=== PATIENT | female | born 1945 | race Caucasian/White ===

== ENCOUNTER 2023-05-04 09:59 | Observation (INO) | payer MEDICARE, SELFPAY ==
[2023-05-04] VITALS (12 sets, daily range): BP systolic 90–159; BP diastolic 56–79; PULSE 80–132; RESP 16–25; TEMP 36.4–37.2; O2SAT 92–98; BMI 20.7
--- NOTE | 2023-05-04 10:05 | XRR_ITS ---
PROCEDURE INFORMATION: Exam: XR Chest Exam date and time: 05/04/2023 10:24 AM Age: 77 years old Clinical indication: Other: A fib; Additional info: Dyspnea/cough TECHNIQUE: Imaging protocol: Radiologic exam of the chest. Views: 1 view. COMPARISON: No relevant prior studies available. FINDINGS: Lungs: Unremarkable. No consolidation. Pleural spaces: Unremarkable. No pleural effusion. No pneumothorax. Heart/Mediastinum: Unremarkable. No cardiomegaly. Bones/joints: [id number] scoliosis. No acute findings. XR/XR chest 1V portable [id number] IMPRESSION: No acute findings.
--- NOTE | 2023-05-04 10:05 | ECG_ITS ---
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 Measurements Intervals [place] Rate: 172 P: 0 [place]: 0 QRS: 14 QRSD: 74 T: 57 QT: 249 QTc: 422 Interpretive Statements ATRIAL FIBRILLATION WITH RAPID VENTRICULAR RESPONSE LOW QRS VOLTAGE IN PRECORDIAL LEADS [QRS DEFLECTION < 1.0 mV IN CHEST LEADS] SEPTAL MYOCARDIAL INFARCTION , PROBABLY OLD [40+ ms Q WAVE IN V1/V2] CRITICAL TEST RESULT No previous ECG available for comparison Electronically Signed On 05-04-2023 12:21:38 CDT by Darci Sexton M.D. [id number]
--- NOTE | 2023-05-04 10:16 | ECG_ITS ---
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 Measurements Intervals [place] Rate: 80 P: 0 ME: 0 QRS: -8 QRSD: 82 T: 20 QT: 335 QTc: 389 Interpretive Statements ATRIAL FIBRILLATION LOW QRS VOLTAGE IN PRECORDIAL LEADS [QRS DEFLECTION < 1.0 mV IN CHEST LEADS] POSSIBLE ANTERIOR MYOCARDIAL INFARCTION , PROBABLY OLD [30 ms Q WAVE IN V3/V4, OR R < 0.2 mV IN V4] Compared to ECG 05/04/2023 10:19:05 No significant changes Electronically Signed On 05-04-2023 12:21:34 CDT by Darci Sexton M.D. [email or web address] [email or web address] [email or web address]/store/[id number]
--- NOTE | 2023-05-04 10:25 | ED_ITS ---
HPI - Dizziness General: Chief Complaint: Dizziness Stated Complaint: chest congestion/dizziness Time Seen by Provider: 05/04/23 10:05 Source: patient Mode of arrival: ambulatory Limitations: no limitations History of Present Illness: HPI Narrative: 77-year-old female states over last 2 weeks she has had cough congestion along with some weakness. She states she has felt like her hearts been racing as well she is in A-fib with RVR here heart rates in the 160s she has no history of A- fib. States she had some low-grade fevers along with some increasing cough she denies any severe shortness of breath she is not hypoxic here. She denies any pain anywhere. Associated symptoms: Denies chest pain, chills, headache(s), nausea or vomiting Review of Systems Const: Denies: fever(s) or chills ENMT: Denies: throat pain or dental pain Card: Reports: irregular heart rhythm; Denies: chest pain Resp: Reports: dyspnea and non-productive cough GI: Denies: abdominal pain, nausea, vomiting or diarrhea : Denies: dysuria Musc: Denies: neck pain or back pain Skin/Breast: Denies: rash Neuro: Denies: headache(s) PFSH ED PFSH: Medical History (Updated 05/04/23 @ 12:48 by Paige Munguia MD) Seasonal allergies Surgical History (Updated 05/04/23 @ 12:21 by Leonides Cruz MD) History of tubal ligation Family History (Updated 05/04/23 @ 12:22 by Leonides Cruz MD) Other CAD (coronary artery disease) Social History (Updated 05/04/23 @ 12:22 by Leonides Cruz MD) Smoking and tobacco status: never smoked Alcohol intake: former Physical Exam Const: COMMON NORMALS: patient oriented x3 HENMT: COMMON NORMALS: normocephalic and atraumatic HEAD & SCALP: normocephalic and atraumatic Eye: COMMON NORMALS: conjunctivae normal CONJUNCTIVA: Yes conjunctivae normal Neck/C-Spine: COMMON NORMALS: full ROM and supple Chest: COMMONS NORMALS: normal inspection of the chest and normal palpation of entire chest wall Resp: COMMON NORMALS: normal respiratory effort, No retractions, No use of accessory muscles and clear to auscultation bilaterally AUSCULTATION: clear to auscultation bilaterally Cardio: COMMON NORMALS: No murmurs present (Cardio) RATE: tachycardic RHYTHM: abnormal rhythm irregularly irregular GI: COMMON NORMALS: Normal to inspection, nondistended, normoactive bowel sounds present, Soft to palpation, non-tender and no masses PALPATION: Yes Soft to palpation Extremity: COMMON NORMALS: normal to inspection and full ROM Neuro: COMMON NORMALS: patient oriented x3, moves all extremities and no focal motor deficits Psych: COMMON NORMALS: mental status grossly normal, Normal thought process present and cooperative THOUGHT PROCESS: Normal thought process present Skin: COMMON NORMALS: no rashes or lesions noted and no wounds GENERAL SKIN EXAM: no rashes or lesions noted Course Vital Signs: Vital signs: Vital Signs Temperature 97.9 F 05/04/23 12:40 Pulse Rate 80 05/04/23 12:40 Respiratory Rate 25 H 05/04/23 10:31 Blood Pressure 115/73 05/04/23 12:40 Pulse Oximetry 95 05/04/23 12:40 Oxygen Delivery Me thod Room Air 05/04/23 11:01 MDM - Dizziness Medical Decision Making Patient presents with new onset A-fib heart rate has improved here but did start her on a Cardizem drip spoke to the hospitalist will admit for observation as this is new onset she is continue have some tachycardia. Medical Records I reviewed the patient's medical records. Lab Data I reviewed the patient's lab results. 05/04/23 10:30 05/04/23 10:30 Radiology Impressions Chest X-Ray 05/04/23 10:05 IMPRESSION: No acute findings. Laboratory Results WBC 9.51 10^3/uL (3.29-11.43) 05/04/23 10:30 RBC 4.80 10^6/uL (3.85-5.65) 05/04/23 10:30 Hgb 15.30 g/dL (11.27-16.99) 05/04/23 10:30 Hct 44.2 % (36-47) 05/04/23 10:30 MCV 92.1 fl (85-98) 05/04/23 10:30 MCH 31.9 pg (27-33) 05/04/23 10:30 MCHC 34.6 g/dL (30-55) 05/04/23 10:30 RDW 13.0 % (12.1-15.1) 05/04/23 10:30 Plt Count 135 10^3/cmm (157-399) L 05/04/23 10:30 MPV 11.5 fL (7.4-10.4) H 05/04/23 10:30 Neut % (Auto) 28.5 % 05/04/23 10:30 Lymph % (Auto) 60.7 % 05/04/23 10:30 [place] % (Auto) 9.3 % 05/04/23 10:30 Eos % (Auto) 0.4 % 05/04/23 10:30 Baso % (Auto) 0.9 % 05/04/23 10:30 Neut # (Auto) 2.71 10^3/uL (1.8-7.7) 05/04/23 10:30 Lymph # (Auto) 5.8 10^3/uL (0.8-4.8) H 05/04/23 10:30 [place] # (Auto) 0.9 10^3/uL (0.2-0.9) 05/04/23 10:30 Eos # (Auto) 0.0 10^3/uL (0.0-0.8) 05/04/23 10:30 Baso # (Auto) 0.1 10^3/uL (0.0-0.1) 05/04/23 10:30 Nucleated RBC % (auto) 0 % 05/04/23 10:30 Nucleated RBCs # 0.0 /100WBC 05/04/23 10:30 Sodium 135 mmol/L (136-145) L 05/04/23 10:30 Potassium 3.7 mmol/L (3.5-5.1) 05/04/23 10:30 Chloride 99 mmol/L (98-107) 05/04/23 10:30 Carbon Dioxide 26 mmol/L (22-29) 05/04/23 10:30 Anion Gap 13.7 (5-19) 05/04/23 10:30 BUN 14 mg/dL (8-23) 05/04/23 10:30 Creatinine 0.7 mg/dL (0.5-0.9) 05/04/23 10:30 GFR Calculation Not Reportable 05/04/23 10:30 Glucose 147 mg/dL (65-115) H 05/04/23 10:30 Calculated Osmolality 283 mOsm/kg (285-295) L 05/04/23 10:30 Calcium 10.0 mg/dL (8.5-10.5) 05/04/23 10:30 Total Bilirubin 0.6 mg/dL (0.15-1.2) 05/04/23 10:30 AST 57 U/L (0-32) H 05/04/23 10:30 ALT 49 U/L (0-33) H 05/04/23 10:30 Alkaline Phosphatase 90 U/L (35-105) 05/04/23 10:30 Total Protein 6.7 g/dL (6.6-8.7) 05/04/23 10:30 Albumin 4.1 g/dL (3.5-5.2) 05/04/23 10:30 Globulin 2.6 g/dL (1.3-4.6) 05/04/23 10:30 SARS-CoV-2 Ag (Rapid) negative (Negative) 05/04/23 11:10 All radiology interpretation(s) finalized by discharge EKG Data EKG 1: I personally reviewed and interpreted this EKG as follows: EKG interpretation date: 05/04/23 EKG interpretation time: 10:19 Interpretation: afib with rvr hr [address] or t wave abnormalities qrs 74 qtc 342 Discharge Plan Discharge Patient Disposition: Admitted As Inpatient Admit Provider: Leonides Cruz Clinical Impression: Atrial fibrillation with rapid ventricular response Condition: Stable Coding Level of Care Code ED Software Quality Automation Engineer for Chg Jackie
[2023-05-04] MEDS: sodium chloride 0.9% 1,000 ML 999 ML IV (10:35)
[2023-05-04] MEDS: dilTIAZem 5 mg/mL SDV 5 mL 15 MG IVP (10:36)
[2023-05-04 10:42] LABS: Basophils # 0.1 10^3/uL (0.0-0.1); Basophils % 0.9 %; Eosinophils % 0.4 %; Hematocrit 44.2 % (36-47); Lymphocytes # 5.8 10^3/uL (0.8-4.8); Lymphocytes % 60.7 %; Mean Corpuscular HGB Conc 34.6 g/dL (30-55); Mean Corpuscular Hemoglobin 31.9 pg (27-33); Mean Corpuscular Volume 92.1 fl (85-98); Mean Platelet Volume 11.5 fL (7.4-10.4); Monocytes # 0.9 10^3/uL (0.2-0.9); Monocytes % 9.3 %; Neutrophils # 2.71 10^3/uL (1.8-7.7); Neutrophils % 28.5 %; Nucleated Red Blood Cells % 0 %; Platelet Count 135 10^3/cmm (157-399); White Blood Count 9.51 10^3/uL (3.29-11.43)
--- NOTE | 2023-05-04 10:57 | PC.PHAR ---
pt states she takes no rx medications and uses flonase prn
[2023-05-04 11:01] LABS: Alanine Aminotransferase 49 U/L (0-33); Albumin Level 4.1 g/dL (3.5-5.2); Alkaline Phosphatase 90 U/L (35-105); Anion Gap 13.7 (5-19); Aspartate Amino Transferase 57 U/L (0-32); Blood Urea Nitrogen 14 mg/dL (8-23); Carbon Dioxide 26 mmol/L (22-29); Chloride 99 mmol/L (98-107); Globulin 2.6 g/dL (1.3-4.6); Glucose 147 mg/dL (65-115); Osmolality Calculated 283 mOsm/kg (285-295); Potassium 3.7 mmol/L (3.5-5.1); Sodium 135 mmol/L (136-145); Total Bilirubin 0.6 mg/dL (0.15-1.2); Total Protein 6.7 g/dL (6.6-8.7)
[2023-05-04 11:03] LABS: Slide Review Slide Review Perform
[2023-05-04 11:34] LABS: SARS Covid-2 Antigen negative (Negative)
[2023-05-04] MEDS: dilTIAZem 100 MG in sodium chloride 0.9% (add-van) 100 ML IV (12:09)
--- NOTE | 2023-05-04 12:19 | P.HP_ITS ---
Providers/Chief Complaint Admitting Physician: Leonides Cruz MD Primary Care Provider: Jonatan Mar DO Chief Complaint: chest congestion/dizziness History of Present Illness Chandni Adams is a 77 year old female emergency department with complaints of palpitations, shortness of breath. She reports this started last night, after yelling at her . She states that 2 weeks ago she had some cough and congestion, perhaps some low-grade fever but this went away. She does not think she was in atrial fibrillation at that time. At some time she felt a little bit of chest discomfort, but it was sharp and short-lived. This was perhaps a day ago. No nausea, vomiting. No chest discomfort currently. She feels like she is back to normal. In the emergency department she got a bolus of Cardizem, and her heart rate was 90 when I saw her, but still atrial fi brillation. She denies ever being in atrial fibrillation before, and denies any history of heart disease. Review of Systems General: Reports: 10 or more systems reviewed and unremarkable except in HPI and below Card: Reports: chest pain, palpitations and irregular heart rhythm; Denies: swelling of feet/ankles Resp: Reports: dyspnea; Denies: productive cough or non-productive cough GI: Denies: abdominal pain, nausea, vomiting, hematemesis, hematochezia or melena Medications/Allergies Home Medications Medication Instructions Recorded Confirmed Last Taken Type fluticasone propionate 50 2 spray intranasal DAILY PRN 05/04/23 05/04/23 Unknown History mcg/actuation nasal Allergy Symptoms spray,suspension Allergies Allergy/AdvReac Type Severity Reaction Status Date / Time No Known Allergies Allergy Verified 05/04/23 10:56 PFSH Acute PFSH: Medical History (Updated 05/04/23 @ 12:25 by Leonides Cruz MD) Seasonal allergies Surgical History (Updated 05/04/23 @ 12:21 by Leonides Cruz MD) History of tubal ligation Family History (Updated 05/04/23 @ 12:22 by Leonides Cruz MD) Other CAD (coronary artery disease) Social History (Updated 05/04/23 @ 12:22 by Leonides Cruz MD) Smoking and tobacco status: never smoked Alcohol intake: former Vitals/I&O/Wt Last Vital Signs Temp 97.6 F 05/04/23 10:08 Pulse 125 H 05/04/23 12:00 Resp 25 H 05/04/23 10:31 BP 159/79 05/04/23 12:00 Pulse Ox 96 05/04/23 12:00 O2 Del Method Room Air 05/04/23 11:01 Weight last 48 hrs Weight 61.689 kg Physical Exam Narrative: General exam is a white female, in no distress HENT: Atraumatic normocephalic. Pupils equally round. Oropharynx clear. Neck is supple no lymphadenopathy thyromegaly Cardiovascular irregular, irregular, with a rate around 100. No murmur Lungs clear no wheezing or crackles Abdomen is soft, positive bowel sounds. No obvious organomegaly exam was deferred Extremities no sinus clubbing or edema, cap refill brisk Skin no rash Neuro no focal deficits Data 05/04/23 10:30 05/04/23 10:30 Other Labs: LFTs are normal with exception of AST and ALT which are slightly elevated at 57 and 49 Glucose 147 Albumin and calcium are normal Rapid COVID-negative Chest x-ray by my read demonstrates scoliosis, no other findings EKG demonstrates atrial fibrillation with rapid ventricular rate, rate of 170, normal axis, nonspecific ST-T wave changes. Q waves are noted septally. I have over read this. A&P Assessment and plan (1) Atrial fibrillation with rapid ventricular response: Patient presents to the hospital with atrial fibrillation with rapid ventricular rate. She believes it is only been going on since last night. Cardizem bolus was given in the emergency department. Her rate is drifting up. I instructed them to go ahead and initiate a Cardizem drip per the orders that were already entered Start Cardizem orally 30 mg every 6 hours and taper off drip as tolerated. Start full dose anticoagulation currently, and will review on discharge whether this should continue as an outpatient Check echocardiogram Check TSH and magnesium level CBC, CMP tomorrow (2) Hyperglycemia: Check hemoglobin A1c (3) Chest pain: Patient reports chest discomfort days ago, sharp, and likely not related to current episode but will check a troponin baseline and determine whether other additional measurements need to be performed Echocardiogram will be useful to make sure there are no wall motion abnormalities Plan Thrombocytopenia. Repeat platelet count tomorrow. This is mild Mild transaminitis. May be secondary to congestion of the liver from atrial fibrillation with rapid ventricular rate. Repeat tomorrow Full code Lovenox will suffice for DVT prophylaxis as well Attestations Medical Necessity Statement*: Will need less than 2 midnights stay for evaluation and treatment of atrial fibrillation with rapid ventricular rate. Diagnoses Atrial fibrillation with rapid ventricular response I48.91 Hyperglycemia R73.9 Chest pain R07.9 Time Spent (min) 47
--- NOTE | 2023-05-04 12:21 | USCV_ITS ---
Chandni Adams Age: 77 Gender: F : 1945 Exam Date: 05/04/2023 13:02 Ordering Phys: Leonides Cruz MD Technologist: Ad Lemons Exam Location: [facility] [place] Indication: chest pain BP: 115 / 73 HR: 80 Rhythm: Sinus Technical Quality: Adequate MEASUREMENTS (Male / Female) Normal Values 2D ECHO LV Diastolic Diameter PLAX 3.4 cm 4.2 - 5.9 / 3.9 - 5.3 cm LV Systolic Diameter PLAX 1.4 cm IVS Diastolic Thickness 1.1 cm 0.6 - 1.0 / 0.6 - 0.9 cm IVS Systolic Thickness 1.8 cm LVPW Diastolic Thickness 1.3 cm 0.6 - 1.0 / 0.6 - 0.9 cm LVPW Systolic Thickness 1.7 cm LVOT Diameter 2.0 cm LV Ejection Fraction 2D Teich 65.0 % LV Ejection Fraction MOD 2C 64.6 % LV Ejection Fraction 2C AL 64.5 % LA Diameter 3.5 cm M-MODE Aortic Annulus Diameter 2.5 cm LA Ao Ratio MM 1.4 MV E Point Septal Separation 1.0 cm DOPPLER AV Peak Velocity 101.0 cm/s LVOT Peak Velocity 86.0 cm/s AV Area Cont Eq vti 2.9 cm squared AV Area Cont Eq pk 2.6 cm squared MV Area PHT 3.7 cm squared Mitral E to A Ratio 2.3 MV E' Velocity 61.0 cm/s Mitral E to MV E' Ratio 7.3 Mitral E to LV E' Lateral Ratio 6.3 Mitral E to LV E' Septal Ratio 8.6 TR Peak Velocity 189.5 cm/s TR Peak Gradient 14.4 mmHg TV Peak E Velocity 98.0 cm/s Right Atrial Pressure 3.0 mmHg Pulmonary Artery Systolic Pressu 17.4 mmHg RV Acceleration Time 0.1 s FINDINGS Left Ventricle Left ventricle is normal in size. LV systolic function is normal with EF of 60 to 65%. No regional wall motion abnormalities are seen. Diastolic function is indeterminate Right Ventricle Normal in size and function Right Atrium Normal in size Left Atrium Normal in size Mitral Valve Structurally normal mitral valve. Trace mitral regurgitation Aortic Valve Grossly normal. Tricuspid Valve Trace tricuspid regurgitation. Pulmonary artery systolic pressure is normal. Pulmonic Valve Not well-visualized. Pericardium Normal Aorta Normal in size IVC Appears to be normal CONCLUSIONS LV systolic function is normal with EF of 60 to 65%. Diastolic function is indeterminate. Trace mitral regurgitation. No comparison studies are available Darci Sexton MD (Electronically Signed) Final Date: 05 May 2023 15:28 S
[2023-05-04] MEDS: dilTIAZem 30 mg Tablet PO ×2 (12:55→23:25)
[2023-05-04] MEDS: enoxaparin 60 mg/0.6 mL Syringe SUBCUT ×2 (13:03→23:25)
[2023-05-04 13:05] LABS: Troponin T (5th) Once 14 ng/L (0-10)
[2023-05-04 13:15] LABS: Magnesium 2.1 mg/dL (1.7-2.3); Thyroid Stimulating Hormone 4.41 uIU/mL (0.27-4.20)
[2023-05-04 13:30] LABS: Estmated Average Glucose 114; Hemoglobin A1C 5.6 % (4.0-6.0)
--- NOTE | 2023-05-04 14:07 | ECG_ITS ---
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 Measurements Intervals [place] Rate: 73 P: 0 DC: 0 QRS: -5 QRSD: 72 T: 13 QT: 343 QTc: 379 Interpretive Statements ATRIAL FIBRILLATION LOW QRS VOLTAGE IN PRECORDIAL LEADS [QRS DEFLECTION < 1.0 mV IN CHEST LEADS] POSSIBLE ANTERIOR MYOCARDIAL INFARCTION , PROBABLY OLD [30 ms Q WAVE IN V3/V4, OR R < 0.2 mV IN V4] Compared to ECG 05/04/2023 11:00:43 No significant changes Electronically Signed On 05-04-2023 14:27:54 CDT by Darci Sexton M.D. [id number]
[2023-05-05 01:57] VITALS: BP 141/76; PULSE 96; RESP 31; TEMP 36.6; O2SAT 93
[2023-05-05 04:46] LABS: Basophils # 0.1 10^3/uL (0.0-0.1); Basophils % 0.7 %; Eosinophils # 0.1 10^3/uL (0.0-0.8); Eosinophils % 1.1 %; Hematocrit 36.7 % (36-47); Lymphocytes # 7.1 10^3/uL (0.8-4.8); Lymphocytes % 70.1 %; Mean Corpuscular HGB Conc 34.6 g/dL (30-55); Mean Corpuscular Hemoglobin 31.9 pg (27-33); Mean Corpuscular Volume 92.2 fl (85-98); Mean Platelet Volume 11.2 fL (7.4-10.4); Monocytes # 0.9 10^3/uL (0.2-0.9); Monocytes % 8.5 %; Neutrophils # 1.96 10^3/uL (1.8-7.7); Neutrophils % 19.4 %; Nucleated Red Blood Cells % 0 %; Platelet Count 139 10^3/cmm (157-399); Red Blood Count 3.98 10^6/uL (3.85-5.65); Red Cell Distribution Width 13.1 % (12.1-15.1); White Blood Count 10.11 10^3/uL (3.29-11.43)
[2023-05-05 05:06] LABS: Alanine Aminotransferase 35 U/L (0-33); Albumin Level 3.4 g/dL (3.5-5.2); Alkaline Phosphatase 72 U/L (35-105); Anion Gap 11.3 (5-19); Aspartate Amino Transferase 37 U/L (0-32); Blood Urea Nitrogen 16 mg/dL (8-23); Calcium 9.1 mg/dL (8.5-10.5); Carbon Dioxide 25 mmol/L (22-29); Chloride 108 mmol/L (98-107); Globulin 1.9 g/dL (1.3-4.6); Glucose 119 mg/dL (65-115); Osmolality Calculated 292 mOsm/kg (285-295); Potassium 4.3 mmol/L (3.5-5.1); Sodium 140 mmol/L (136-145); Total Bilirubin 0.4 mg/dL (0.15-1.2); Total Protein 5.3 g/dL (6.6-8.7)
[2023-05-05 05:13] LABS: Slide Review Slide Review Perform
[2023-05-05] MEDS: dilTIAZem 30 mg Tablet PO (05:17)
[2023-05-05 05:24] VITALS: BP 118/61; PULSE 72; RESP 25; TEMP 36.3; O2SAT 90
[2023-05-05 05:32] VITALS: PULSE 86
[2023-05-05] MEDS: metoprolol tartrate 1 mg/1 mL SDV 5 mL 5 MG IVP (08:22)
[2023-05-05 09:14] VITALS: BP 104/65; PULSE 60; RESP 19; O2SAT 93
--- NOTE | 2023-05-05 09:46 | PC.CHAP ---
Pastoral Care Encounter/Spiritual Assessment Type of Contact [] Declined impregnator and drier helper visit [] Patient/Family/Request visit [] Outpatient visit [] Follow-up visit [] Physician referral [] Code/Alert [x] Routine visit [] Staff referral [] Actively dying [] Patient sleeping [] Family support [] [] Out of room [] Palliative care [] [] Receiving care in room [] Pre-surgical visit [] Trauma [] Long length of stay [] ICU visit [] Other: Relational/Emotional Strength [x] Patient feels connected with others/family/visitors/staff [] Distress [] Loneliness/isolation [] Abandonment Spirituality of Patient [x] Person of Silke [] Attends Shinto of their Silke [x] Believes in Prayer [] Reads Bible or Oriental Orthodox materials [] There are Spiritual issues to be addressed Breastfeeding Peer Counselor Interventions [x] Prayer [x] Active listening [] Non-anxious presence [x] Spiritual/emotional support [] Crisis/trauma care [] Spiritual counseling [] Bereavement support [] Provided bereavement packet [] Provided Bible/devotional materials [] Provided toy/stuffed animal, coloring book to patient or family member [] Provided Communion [] Anointing/[place]ero [] Salvation [x Completed spiritual assessment [] Other: Impact on Illness or Injury [] Angry [] Fearful [] Anxious [] Often cries [] Exhaustion [] Unable to work [] Unable to attend mormon [] Unable to walk/stand [] Unable to read [] Unable to drive [] Unable to eat/drink [] Unable to sleep [] Unable to be with family [] Patient intubated [] Other: Summary Time spent with patient 5 min
[2023-05-05] MEDS: dilTIAZem ER (24HR) 120 mg Capsule PO (09:54)
--- NOTE | 2023-05-05 12:24 | P.DS_ITS ---
Discharge Providers Date of Admission: 05/04/23 12:21 Date of Discharge: May 05, 2023 Attending Provider at Admission: Leonides Cruz MD Attending Provider at Discharge: Leonides Cruz MD Primary Care Provider: Jonatan Mar DO Diagnoses at Discharge Discharge Diagnosis (1) Atrial fibrillation with rapid ventricular response: Status: Acute (2) Hyperglycemia: Status: Acute (3) Chest pain: Status: Acute Reason for Visit Reason for Visit: chest congestion/dizziness Hospital Course Hospital Course Chandni is a 77-year-old white female who presented the hospital with palpitations. She was found to be in atrial fibrillation with rapid ventricular rate. She was given a Cardizem bolus and started on Cardizem IV in the emergency department. TSH, electrolytes, magnesium was tested and there were no significant concerns on admission. She was transitioned to oral Cardizem. The following day she still was running slightly high and received a dose of IV metoprolol. With this she cardioverted to normal sinus rhythm. I discussed with her the risks and benefits of anticoagulation and medication. She agrees with anticoagulation. She will discharge on Cardizem 120 mg p.o. daily and Eliquis 5 mg twice daily. She will follow-up with her primary care provider in 3 to 5 days, cardiology 2 weeks. She was given opportunity to ask questions and agrees with the plan. An echocardiogram was ordered, and completed but final reading pending at time of discharge. Platelets were slightly low, and this can be followed up with her primary care provider. Liver function tests improving. Physical Exam Narrative: General exam no distress Neck is supple Cardiovascular regular rate and rhythm, no murmur Lungs clear Abdomen is soft Extremities no cyanosis clubbing or edema Discharge Data Studies Completed and Pending Completed Studies During Hospitalization Category Date Time Status XR chest 1V portable [id number] Stat Exams 05/04/23 10:05 Completed Pending at discharge Category Date Time Status CV. echo complete* [id number] Routine Ultrasound 05/04/23 12:21 Taken Radiology Impressions Chest X-Ray 05/04/23 10:05 IMPRESSION: No acute findings. Laboratory Results WBC 10.11 10^3/uL (3.29-11.43) 05/05/23 04:36 RBC 3.98 10^6/uL (3.85-5.65) 05/05/23 04:36 Hgb 12.70 g/dL (11.27-16.99) 05/05/23 04:36 Hct 36.7 % (36-47) 05/05/23 04:36 MCV 92.2 fl (85-98) 05/05/23 04:36 MCH 31.9 pg (27-33) 05/05/23 04:36 MCHC 34.6 g/dL (30-55) 05/05/23 04:36 RDW 13.1 % (12.1-15.1) 05/05/23 04:36 Plt Count 139 10^3/cmm (157-399) L 05/05/23 04:36 MPV 11.2 fL (7.4-10.4) H 05/05/23 04:36 Neut % (Auto) 19.4 % 05/05/23 04:36 Lymph % (Auto) 70.1 % 05/05/23 04:36 [place] % (Auto) 8.5 % 05/05/23 04:36 Eos % (Auto) 1.1 % 05/05/23 04:36 Baso % (Auto) 0.7 % 05/05/23 04:36 Neut # (Auto) 1.96 10^3/uL (1.8-7.7) 05/05/23 04:36 Lymph # (Auto) 7.1 10^3/uL (0.8-4.8) H 05/05/23 04:36 [place] # (Auto) 0.9 10^3/uL (0.2-0.9) 05/05/23 04:36 Eos # (Auto) 0.1 10^3/uL (0.0-0.8) 05/05/23 04:36 Baso # (Auto) 0.1 10^3/uL (0.0-0.1) 05/05/23 04:36 Nucleated RBC % (auto) 0 % 05/05/23 04:36 Nucleated RBCs # 0.0 /100WBC 05/05/23 04:36 Sodium 140 mmol/L (136-145) 05/05/23 04:36 Potassium 4.3 mmol/L (3.5-5.1) 05/05/23 04:36 Chloride 108 mmol/L (98-107) H 05/05/23 04:36 Carbon Dioxide 25 mmol/L (22-29) 05/05/23 04:36 Anion Gap 11.3 (5-19) 05/05/23 04:36 BUN 16 mg/dL (8-23) 05/05/23 04:36 Creatinine 0.9 mg/dL (0.5-0.9) 05/05/23 04:36 GFR Calculation Not Reportable 05/05/23 04:36 Glucose 119 mg/dL (65-115) H 05/05/23 04:36 Estimat Average Glucose 114 05/04/23 10:30 Hemoglobin A1c 5.6 % (4.0-6.0) 05/04/23 10:30 Calculated Osmolality 292 mOsm/kg (285-295) 05/05/23 04:36 Calcium 9.1 mg/dL (8.5-10.5) 05/05/23 04:36 Magnesium 2.1 mg/dL (1.7-2.3) 05/04/23 10:30 Total Bilirubin 0.4 mg/dL (0.15-1.2) 05/05/23 04:36 AST 37 U/L (0-32) H 05/05/23 04:36 ALT 35 U/L (0-33) H 05/05/23 04:36 Alkaline Phosphatase 72 U/L (35-105) 05/05/23 04:36 Troponin T Gen 5 ng/L 14 ng/L (0-10) H 05/04/23 10:30 Total Protein 5.3 g/dL (6.6-8.7) L D 05/05/23 04:36 Albumin 3.4 g/dL (3.5-5.2) L 05/05/23 04:36 Globulin 1.9 g/dL (1.3-4.6) 05/05/23 04:36 TSH 4.41 uIU/mL (0.27-4.20) H 05/04/23 10:30 SARS-CoV-2 Ag (Rapid) negative (Negative) 05/04/23 11:10 Vitals Last Vital Signs Temp 97.4 F L 05/05/23 05:24 Pulse 60 05/05/23 09:14 Resp 19 H 05/05/23 09:14 BP 104/65 05/05/23 09:14 Pulse Ox 93 05/05/23 09:14 O2 Del Method Room Air 05/05/23 05:24 Discharge Plan Discharge Condition: Stable Prescriptions: New diltiazem HCl 120 mg Capsule,Extended Release 24hr 120 mg PO DAILY Qty: 30 0RF Eliquis 5 mg tablet 5 mg PO BID Qty: 60 0RF Continued Flonase 50 mcg/actuation [place],Suspension 2 spray INTRANASAL DAILY PRN (Reason: Allergy Symptoms) Rx Instructions: administer into each nostril Discharge Orders: Discharge Order (Routine); Ordered 05/05/23 Ordered By: Leonides Cruz Referrals: Jonatan Mar DO [Primary Care Provider] - 4-7 days Discharge Diet: Regular Discharge Activity: Increase activity as tolerated Patient Instructions: Opioid Safety Activity Restrictions/Additional Instructions: Take all medicine as prescribed Follow-up with your primary care provider in 3 to 5 days Please arrange follow-up with cardiology in 2 weeks Return for any concerns If any significant bleeding notify your primary care provider immediately. Discharge Attestations Time Spent in Discharge Care*: greater than 30 min Quality Metrics Clinical Quality Measures [ No reported AMI, CVA or VTE this stay] Coding Level of Care Code 36786 Total time (in minutes) for Discharge: 36 Diagnoses Atrial fibrillation with rapid ventricular response I48.91 Hyperglycemia R73.9 Chest pain R07.9
[2023-05-05 14:17] VITALS: BP 137/66
--- NOTE | 2023-05-05 15:30 | PC.NURSE ---
Discharge Note Patient discharged to home via POV accompanied by spouse/son. Discharge instructions reviewed with patient and/or small business sales representative. Mobile pharmacy medications and/or prescriptions provided. Belongings/home medications returned.
[2023-05-05 16:02] VITALS: BP 137/66
== END 2023-05-05 15:30 | disposition home or self-care (01) ==
LOC: ER 10:29 → CSU 12:47
PROVIDERS: Family Medicine; Admitting Provider Internal Medicine; Emergency Provider Emergency Medicine; PCP Internal Medicine; Visit Provider Internal Medicine
DX: I48.91 Unspecified atrial fibrillation (principal); R73.9 Hyperglycemia, unspecified; R07.9 Chest pain, unspecified; D69.6 Thrombocytopenia, unspecified; R74.01 Elevation of levels of liver transaminase levels
CPT/HCPCS: 36415; 71045; 80053; 83036; 83735; 84443; 84484; 85025; 87426; 93005; 93306; 96365; 96366; 96372; 96375; 99285; G0378; J1650; J3490; J7030

== ENCOUNTER → 2023-06-03 14:06 | Outpatient (BNVA) | payer MEDICARE, SELFPAY | PROVIDERS: PCP Internal Medicine; Visit Provider Internal Medicine Cardiovascular Disease | DX: I48.91 Unspecified atrial fibrillation (principal); Z79.01 Long term (current) use of anticoagulants; R03.0 Elevated blood-pressure reading, without diagnosis of hypertension; R74.01 Elevation of levels of liver transaminase levels; D69.6 Thrombocytopenia, unspecified | CPT/HCPCS: 99204 ==

== ENCOUNTER → 2025-04-03 10:42 | Outpatient (BNVA) | payer MEDICARE, SELFPAY | PROVIDERS: PCP Internal Medicine; Visit Provider Internal Medicine Cardiovascular Disease | DX: I48.20 Chronic atrial fibrillation, unspecified (principal); R03.0 Elevated blood-pressure reading, without diagnosis of hypertension; D69.6 Thrombocytopenia, unspecified; R07.9 Chest pain, unspecified; Z79.01 Long term (current) use of anticoagulants; R06.02 Shortness of breath; I48.91 Unspecified atrial fibrillation; I48.92 Unspecified atrial flutter; N18.9 Chronic kidney disease, unspecified | CPT/HCPCS: 36415; 80048; 84443; 85025; 85610; 93005; 99214 ==